=== PATIENT | female | born 1965 | race Caucasian/White ===

== ENCOUNTER 2017-10-03 05:47 | Inpatient (IN) ==
[2017-09-27 15:03] LABS: Basophils # 0.1 10*3/uL (0.0-0.2); Basophils % 0.3 % (0.0-0.8); Hematocrit 49.4 VOL% (35.7-47.0); Hemoglobin 16.8 GM/DL (12.0-16.0); Immature Granulocytes % 0.3 %; Immature Granulocytes Absolute 0.07 #; Lymphocytes # 2.2 10*3/uL (1.4-4.0); Lymphocytes % 10.5 % (21.3-54.2); Mean Corpuscular Hemoglobin 32 PG (27-34); Mean Corpuscular Volume 93.6 FL (87-102); Mean Platelet Volume 10.4 FL (9.6-12.0); Monocytes # 1.2 10*3/uL (0.11-0.8); Monocytes % 5.6 % (1.7-12.7); Neutrophils # 17.4 10*3/uL (1.4-7.4); Neutrophils % 83.3 % (38.7-73.9); Platelet Count 251 T/CUMM (130-400); Red Blood Count 5.28 MC/CUMM (3.8-5.5); Red Cell Distribution Width 13.2 % (9.3-17.3); White Blood Count 20.9 T/CUMM (4-12)
[2017-09-27 15:15] LABS: INR 0.9; PT Patient Result 9.7 SECS; Partial Thromboplastin Time 25.1 SECS (0-40)
[2017-09-27 15:27] LABS: Alanine Aminotransferase 18 U/L (13-56); Alkaline Phosphatase 109 U/L (45-117); Aspartate Amino Transferase 10 U/L (0-37); Bilirubin,Total < 0.39 MG/DL (0.2-1.0); Blood Urea Nitrogen 13 MG/DL (7-18); Calcium 9.4 MG/DL (8.5-10.1); Glucose 141 MG/DL (74-106); Osmolality,Calculated 280.4 MOS/KG (273-304); Potassium 4.1 MMOL/L (3.5-5.1); Sodium 140 MMOL/L (136-145); Total Protein 7.6 G/DL (6.4-8.3)
[2017-09-27 15:30] LABS: Lymphocytes 3 % (20-55); Segmented Neutrophils 95 % (50-85); Total Cells Counted 100
[2017-09-27 16:09] LABS: Platelet Estimate Normal; Polychromasia Few
[2017-10-03] MEDS ORDERED: ceFAZolin 2,000 MG in PREMIX 1 EACH IV ONE (06:00)
[2017-10-03] MEDS ORDERED: LACTATED RINGERS 1,000 ML IV SCH (07:00)
[2017-10-03] MEDS ORDERED: PHENYLEPHRINE 10 MG/1 ML VIAL IV ONE ×2 (09:24→11:27)
[2017-10-03] MEDS ORDERED: TISSUE ADHESIVE 1 EACH APPLICATOR TOP ONE (10:22)
[2017-10-03] MEDS ORDERED: HYDROmorphone 2 MG/1 ML VIAL IV PRN (10:53)
[2017-10-03] MEDS ORDERED: ONDANSETRON 4 MG/2 ML VIAL IV PRN ×2 (10:53→11:39)
[2017-10-03] MEDS ORDERED: MIDAZOLAM 2 MG/2 ML VIAL ONE (11:26)
[2017-10-03] MEDS ORDERED: SEVOFLURANE 1 UNIT/15 MINUTE INH ONE (11:26)
[2017-10-03] MEDS ORDERED: PROPOFOL 200 MG/20 ML VIAL IV ONE (11:26)
[2017-10-03] MEDS ORDERED: ACETAMINOPHEN 1,000 MG/100 ML VIAL IV ONE (11:27)
[2017-10-03] MEDS ORDERED: HYDROCORTISONE 100 MG VIAL ONE (11:27)
[2017-10-03] MEDS ORDERED: PHENYLEPHRINE 1 MG/10 ML SYRINGE IV ONE (11:27)
[2017-10-03] MEDS ORDERED: fentaNYL 100 MCG/2 ML VIAL ONE (11:27)
[2017-10-03] MEDS ORDERED: GLYCOPYRROLATE 0.4 MG/2 ML VIAL ONE (11:27)
[2017-10-03] MEDS ORDERED: SODIUM CHLORIDE 0.9% 200 ML IV ONE (11:28)
[2017-10-03] MEDS ORDERED: ROCURONIUM 100 MG/10 ML VIAL IV ONE (11:28)
[2017-10-03] MEDS ORDERED: LACTATED RINGERS 2,000 ML IV ONE (11:28)
[2017-10-03] MEDS ORDERED: SUCCINYLCHOLINE 200 MG/10 ML VIAL ONE (11:28)
[2017-10-03] MEDS: MORPHINE 10 MG/1 ML VIAL IV PRN ×3 (11:37→12:01)
[2017-10-03] MEDS ORDERED: MORPHINE 10 MG/1 ML VIAL ONE (11:40)
[2017-10-03] MEDS ORDERED: ONDANSETRON 4 MG/2 ML VIAL ONE (11:41)
[2017-10-03] MEDS: DEXTROSE 5% NACL 0.45% 1,000 ML IV SCH (13:42)
[2017-10-03 16:21] LABS: Hematocrit 45.5 VOL% (35.7-47.0); Hemoglobin 15.6 GM/DL (12.0-16.0)
[2017-10-03] MEDS: ceFAZolin 2,000 MG in PREMIX 1 EACH IV SCH (17:44)
[2017-10-03] MEDS: ACETAMINOPHEN 325 MG TABLET PO PRN (17:53)
[2017-10-03] MEDS: PROPRANOLOL 40 MG TABLET PO SCH (23:50)
[2017-10-03] MEDS: METOPROLOL TARTRATE 100 MG TABLET PO SCH (23:51)
[2017-10-04] MEDS: ceFAZolin 2,000 MG in PREMIX 1 EACH IV SCH (00:30)
[2017-10-04] MEDS: DEXTROSE 5% NACL 0.45% 1,000 ML IV SCH ×2 (00:31→10:47)
[2017-10-04 04:08] LABS: Basophils # 0.1 10*3/uL (0.0-0.2); Basophils % 0.4 % (0.0-0.8); Hematocrit 42.6 VOL% (35.7-47.0); Hemoglobin 14.1 GM/DL (12.0-16.0); Immature Granulocytes % 0.3 %; Immature Granulocytes Absolute 0.04 #; Lymphocytes # 3.6 10*3/uL (1.4-4.0); Lymphocytes % 27.9 % (21.3-54.2); Mean Corpuscular HGB Conc 33.1 GM/DL (32-36); Mean Corpuscular Hemoglobin 32 PG (27-34); Mean Corpuscular Volume 95.3 FL (87-102); Mean Platelet Volume 10.5 FL (9.6-12.0); Monocytes # 0.9 10*3/uL (0.11-0.8); Monocytes % 7.2 % (1.7-12.7); Neutrophils # 8.3 10*3/uL (1.4-7.4); Neutrophils % 64.2 % (38.7-73.9); Platelet Count 188 T/CUMM (130-400); Red Blood Count 4.47 MC/CUMM (3.8-5.5); Red Cell Distribution Width 13.4 % (9.3-17.3)
[2017-10-04 04:41] LABS: Albumin 2.9 G/DL (3.4-5.0); Bilirubin,Total 0.5 MG/DL (0.2-1.0); Calcium 6.6 MG/DL (8.5-10.1); Osmolality,Calculated 276.4 MOS/KG (273-304); Potassium 3.4 MMOL/L (3.5-5.1); Total Protein 5.6 G/DL (6.4-8.3)
[2017-10-04] MEDS ORDERED: POTASSIUM CHLORIDE INJ 20 MEQ in DEXTROSE 5% NACL 0.45% 1,000 ML IV SCH (08:47)
[2017-10-04] MEDS ORDERED: amLODIPine 5 MG TABLET PO SCH (09:00)
[2017-10-04] MEDS: METOPROLOL TARTRATE 100 MG TABLET PO SCH ×2 (09:04→20:49)
[2017-10-04] MEDS: PANTOPRAZOLE 40 MG VIAL IV SCH (09:04)
[2017-10-04] MEDS: PROPRANOLOL 40 MG TABLET PO SCH (09:05)
[2017-10-04] MEDS: [UNRECOGNIZED DRUG - OTHER] IV SCH ×2 (10:45→23:59)
[2017-10-04] MEDS: CHOLECALCIFEROL 400 UNIT TABLET PO SCH (10:45)
[2017-10-04] MEDS: CALCIUM CARBONATE CHEW 500 MG TABLET PO SCH ×3 (10:45→23:58)
[2017-10-04] MEDS: CALCIUM GLUCONATE IV SCH ×2 (10:45→23:59)
[2017-10-04] MEDS: POTASSIUM CHLORIDE IV SCH ×2 (10:45→23:59)
[2017-10-04] MEDS ORDERED: ALPRAZolam 0.25 MG TABLET PO PRN (10:52)
[2017-10-04] MEDS ORDERED: POTASSIUM CHLORIDE 20 MEQ TABLET PO ONE (11:25)
[2017-10-04] MEDS ORDERED: POTASSIUM CHLORIDE 20 MEQ TABLET PO PRN (11:26)
[2017-10-04] MEDS: ACETAMINOPHEN 325 MG TABLET PO PRN (18:12)
[2017-10-04] MEDS: PROPRANOLOL 20 MG TABLET PO SCH (20:48)
[2017-10-05] MEDS: ACETAMINOPHEN 325 MG TABLET PO PRN (05:08)
[2017-10-05 05:25] LABS: Basophils # 0.1 10*3/uL (0.0-0.2); Basophils % 0.6 % (0.0-0.8); Hematocrit 41.4 VOL% (35.7-47.0); Hemoglobin 14.3 GM/DL (12.0-16.0); Immature Granulocytes % 0.4 %; Immature Granulocytes Absolute 0.03 #; Lymphocytes # 2.5 10*3/uL (1.4-4.0); Lymphocytes % 30.3 % (21.3-54.2); Mean Corpuscular HGB Conc 34.5 GM/DL (32-36); Mean Corpuscular Hemoglobin 32 PG (27-34); Mean Platelet Volume 10.4 FL (9.6-12.0); Monocytes # 0.7 10*3/uL (0.11-0.8); Monocytes % 8.5 % (1.7-12.7); Neutrophils # 4.9 10*3/uL (1.4-7.4); Neutrophils % 60.2 % (38.7-73.9); Platelet Count 171 T/CUMM (130-400); Red Blood Count 4.45 MC/CUMM (3.8-5.5); Red Cell Distribution Width 13.3 % (9.3-17.3); White Blood Count 8.1 T/CUMM (4-12)
[2017-10-05 06:23] LABS: Osmolality,Calculated 278.1 MOS/KG (273-304); Potassium 3.7 MMOL/L (3.5-5.1)
[2017-10-05] MEDS: [UNRECOGNIZED DRUG - OTHER] IV SCH (07:30)
[2017-10-05] MEDS: POTASSIUM CHLORIDE IV SCH (07:30)
[2017-10-05] MEDS: CALCIUM GLUCONATE IV SCH (07:30)
[2017-10-05] MEDS: CALCIUM CARBONATE CHEW 500 MG TABLET PO SCH (09:24)
[2017-10-05] MEDS: CHOLECALCIFEROL 400 UNIT TABLET PO SCH (09:25)
[2017-10-05] MEDS: PROPRANOLOL 20 MG TABLET PO SCH (09:25)
[2017-10-05] MEDS: PANTOPRAZOLE 40 MG VIAL IV SCH (09:25)
[2017-10-05] MEDS: METOPROLOL TARTRATE 100 MG TABLET PO SCH (09:40)
[2017-10-05 11:52] VITALS: BP 104/73
== END 2017-10-05 12:55 | disposition home or self-care (01) | DRG 627 ==
LOC: N.OR 05:47 → N.SDSINP 05:53 → N.4E 10:47
PROVIDERS: ADMIT Specialist; ATTEND Specialist